=== PATIENT | male | born 1960 | race Caucasian/White ===

== ENCOUNTER 2016-04-27 17:09 | Emergency (ER) | payer OTHER ==
[~2016-04-27 17:09] MED LIST: IBUP200T2 PO
[2016-04-27] MEDS ORDERED: ONDANSETRON 4MG/2ML VIAL (J2405) As Ordered ONE (17:43)
[2016-04-27] MEDS ORDERED: MORPHINE 4 MG/ML 1ML SYRINGE As Ordered ONE ×2 (17:43→18:10)
--- NOTE | 2016-04-27 18:10 | REP ---
Clinical: Trauma. Technique: AP and lateral views. Findings: Comminuted fracture of the radial head is appreciated with small adjacent fracture fragments. The distal humerus and proximal ulna appear grossly intact. Anterior soft tissue swelling noted. Impression: Comminuted fracture of the radial head with small displaced fracture fragments. Signed by Radnolph Barroso MD 04/27/2016 06:01 P
[2016-04-27] MEDS ORDERED: ADACEL/BOOSTRIX VACCINE (DIPHTH/PERTUSS/ACELL/TETANUS)0.5ML SYR (90715) As Ordered ONE (19:04)
[2016-04-27] MEDS ORDERED: NEOSPORIN OINT 0.9 GM PKT (FLOOR STOCK) As Ordered ONE (19:08)
--- NOTE | 2016-04-27 19:17 | EDDOCDS ---
Nurse's Notes [facility] Name: Kashif Fong Age: 56 yrs Sex: Male : 1960 Arrival Date: 04/27/2016 Time: 17:09 Bed 4 Private MD: Diagnosis: Fall due to ice and snow;Fracture of head of radius-comminuted;Abrasion of scalp-left forehead Presentation: 04/27 17:14 Presenting complaint: Patient states: Sent from [facility] for ck1 dislocated right elbow. Fell on ice this afternoon at 1600. Adult Sepsis Screening: The patient does not have new or worsening altered mentation. Patient's respiratory rate is less than 22. Systolic blood pressure is greater than 100. Patient has a qSOFA score of 0- Negative Sepsis Screen. Suicide/Homicide risk assessment- the patient denies having any suicidal and/or homicidal ideations and does not present with any other emotional, behavioral or mental health complaints. Status: Patient is not a field services director or dependent. Transition of care: Patient was received from [facility]. Red Flag criteria, patient assessed and taken directly to a bed. 17:14 Acuity: DORA Level 3 ck1 17:14 Method Of Arrival: Walkin/Carried/Asstd ck1 Triage Assessment: 17:16 General: Appears in no apparent distress, comfortable, Behavior is appropriate for age, ck1 cooperative. Pain: Location: right arm Pain currently is 7 out of 10 on a pain scale. HIV screening NA for this visit Offered previously. Derm: Skin is intact, is healthy with good turgor, Skin is pink, warm & dry. Musculoskeletal: Range of motion limited in right elbow. Historical: - Allergies: PENICILLINS; - Home Meds: 1. none - PMHx: Hypercholesterolemia; - PSHx: left leg surgery fro gangrene; right eye surgery; - The history from nurses notes was reviewed: and elements of the historical information I have obtained differs from that reported to nursing. - Social history: Smoking status: Patient states former smoker of tobacco. No barriers to communication noted, The patient speaks fluent Mohawk, Speaks appropriately for age. - : The pt / caregiver states he / she is not on anticoagulants. Home medication list is obtained from the patient. - Hospitalizations: : No recent hospitalization is reported. - Exposure Risk Screening:: None identified. - Immunization history:: All immunizations up-to-date. - Family history: Not pertinent. - Social history:: the patient is a non-smoker, the patient does not drink alcohol. Screenin:18 Screening information is obtained from the patient. Fall risk: No risks identified. ck1 Assistance ADL's: requires no assistance with activities of daily living. Abuse/DV Screen: The patient / caregiver reports he/she is: not in a situation that causes fear, pain or injury. Nutritional screening: No deficits noted. Advance Directives: Currently, there is no health care proxy. home support is adequate. Assessment: 17:37 General: Appears in no apparent distress, well nourished, well groomed, Behavior is jjr appropriate for age. Neurological: No deficits noted. Respiratory: No deficits noted. Derm: No deficits noted. Musculoskeletal: Circulation, motion, and sensation intact Range of motion limited in right elbow. 19:15 General: Appears in no apparent distress, splint and sling in place to right arm. jjr Vital Signs: 17:12 BP 110 / 78; Pulse 76; Resp 16; Pulse Ox 100% on R/A; Weight 86.18 kg (R); Height 5 ft. lr2 6 in. (167.64 cm) (R); Pain 6/10; 17:52 Temp 100.5(TE); jjr 18:15 BP 128 / 70; jjr 19:15 BP 116 / 62; Pulse 76; Resp 18; Temp 100(TE); Pulse Ox 95% on R/A; Pain 5/10; jjr 17:12 Body Mass Index 30.67 (86.18 kg, 167.64 cm) lr2 Vitals: 17:09 RN notified that patient meets Red Flag criteria. lr2 17:12 Log In Time: April 27, 2016 at 17:09. lr2 ED Course: 17:11 Patient visited by Ileana Jonas. lr2 17:11 Patient moved to Waiting lr2 17:12 Patient moved to Pre RCE lr2 17:14 Annabelle Boss, RN is Primary Nurse. ck1 17:14 Patient moved to 4 ck1 17:15 Triage Initiated ck1 17:18 The patient / caregiver is instructed regarding the plan of care and ED course. ck1 17:22 Nadir Mao MD is Attending Physician. pc 17:37 Patient visited by Nadir Mao MD. pc 17:37 Patient visited by Annabelle Boss RN. jjr 17:43 Inserted saline lock: 20 gauge in left antecubital area. jjr 18:13 Elbow, (AP\E\Lat) Returned. EDMS 18:47 Orthopaedics, [facility] is Referral Physician. pc 18:48 Assist provider with fracture care of right arm Fracture is closed. Circulation, motor mcp and sensation is intact. Immoblized with Ortho Glass splint Performed by Nadir Mao MD Post immobilization, circulation, motor and sensation remain intact. Patient tolerated well. 19:15 Primary Nurse role handed off by Annabelle Boss RN cf2 19:15 Nan Bowman RN is Primary Nurse. cf2 19:15 Patient visited by Nan Bowman RN. cf2 19:15 [facility] Payment Agreement was scanned into [employer] and attached to record. zo 19:15 Discontinued lock intact, bleeding controlled, pressure dressing applied, No jjr redness/swelling at site. Administered Medications: 17:51 Drug: morphine 4 mg [morphine 4 mg/mL intravenous cartridge (1 mL)] Route: IVP; Site: jjr left antecubital; 17:51 Drug: Ondansetron 4 mg [ondansetron HCl 2 mg/mL intravenous solution (2 mL)] Route: jjr IVP; Site: left antecubital; 18:15 Drug: morphine 4 mg [morphine 4 mg/mL intravenous cartridge (1 mL)] Route: IVP; Site: jjr left antecubital; 19:08 Drug: Tetanus- Diptheria-Acellular Pertussis 0.5 ml [diphth,pertussis(acel),tetanus 2.5 cf2 Lf unit-8 mcg-5 Lf/0.5mL IM syringe (0.5 mL)] {Deep Tissue Massage Therapist: [employer]. Exp: 04/22/2018. Lot #: [id number]. } Route: IM; Site: left deltoid; Order Results: Radiology Order: Elbow, (AP\E\Lat) Test: Elbow, (AP\E\Lat) REASON FOR EXAMINATION: Trauma; Clinical: Trauma.; ; Technique: AP and lateral views.; ; Findings:; Comminuted fracture of the radial head is appreciated with small adjacent; fracture fragments. The distal humerus and proximal ulna appear grossly intact.; Anterior soft tissue swelling noted.; ; Impression:; Comminuted fracture of the radial head with small displaced fracture fragments.; ; ; Signed by; Randolph Barroso MD 04/27/2016 06:01 P; Outcome: 18:48 Discharge ordered by Provider. 19:16 Discharge Assessment: patient administered narcotics - yes. Pt provided with safe jjr discharge. The following High Risk Discharge criteria are identified: None. Discharged to home ambulatory. Condition: stable. Discharge instructions given to patient, Instructed on discharge instructions, follow up and referral plans. medication usage, Demonstrated understanding of instructions, medications, Prescriptions given X 1, Work note provided to patient. No special radiology studies were completed. Property sent home with patient. 19:16 Patient left the ED. jjr Signatures: Dispatcher [employer] EDNadir Berger MD MD pc Peters, Mary RN RN Lisset Brooks RN RN ck1 Antony Talamantes Jessica RN RN jjr Nan Bowman RN RN cf2 Ileana Jonas2 Corrections: (The following items were deleted from the chart) 17:46 17:16 PMHx: none; ck1 MTDD
--- NOTE | 2016-04-27 19:17 | EDDOCDS ---
Physician Documentation [facility] Name: Kashif Fong Age: 56 yrs Sex: Male : 1960 Arrival Date: 04/27/2016 Time: 17:09 Bed 4 Private MD: Disposition: 04/27 18:43 Critical Care: Critical care not applicable. pc Disposition: 04/27/16 18:48 Discharged to Home/Self Care. Impression: Fall due to ice and snow, Fracture of head of radius - comminuted, Abrasion of scalp - left forehead. - Condition is Stable. - Discharge Instructions: Abrasion, Radial Head Fracture, Arm Sling Use, [id number]. - Prescriptions for [place] 5- 325 mg Oral Tablet - take 1 tablet by ORAL route every 6 hours As needed MDD: 4 tabs; 20 tablet. - Work Release Form - 3 day, Medication Reconciliation, Local Pharmacy Hours form. - Follow up: Orthopaedics, [facility]; When: Tomorrow; Reason: Recheck today's complaints, To establish care. - Problem is new. - Symptoms have improved. HPI: 17:41 This 56 yrs old Male presents to ER via Walkin/Carried/Asstd with complaints pc of Fall Injury. 17:41 The history is obtained from the patient. He slipped on a sidewalk at work, falling pc forward and landing on his right elbow. He also struck the left side of his forehead on the sidewalk as well, sustaining an abrasion to his left eyebrow. He did not have a LOC. His only complaint is of right elbow pain. He was seen at a urgent care and sent here for fracture care. His films sent with him are of poor quality but show a radial head fracture and dislocation. He is right hand dominant. His last oral intake was at noon. At their worst, the symptoms were a 8 out of 10. In the emergency department, the symptoms are a 8 out of 10. The patient has not experienced similar symptoms in the past. The patient has not recently seen a physician. Historical: - Allergies: PENICILLINS; - Home Meds: 1. none - PMHx: Hypercholesterolemia; - PSHx: left leg surgery fro gangrene; right eye surgery; - The history from nurses notes was reviewed: and elements of the historical information I have obtained differs from that reported to nursing. - Social history: Smoking status: Patient states former smoker of tobacco. No barriers to communication noted, The patient speaks fluent Italian, Speaks appropriately for age. - : The pt / caregiver states he / she is not on anticoagulants. Home medication list is obtained from the patient. - Hospitalizations: : No recent hospitalization is reported. - Exposure Risk Screening:: None identified. - Immunization history:: All immunizations up-to-date. - Family history: Not pertinent. - Social history:: the patient is a non-smoker, the patient does not drink alcohol. ROS: 17:46 All systems are negative except as listed. pc Exam: 17:46 General Appearance: alert, the patient is in mild distress. pc 17:46 EENT: normal eye inspection, ears, nose and throat normal, pharynx normal, mucous membranes moist small abrasion to left eyebrow, no laceration . 17:46 Neck: The exam reveals no acute abnormalities. ROM is normal and painless. No nuchal rigidity is noted.. 17:46 Respiratory: no respiratory distress, normal breath sounds, chest non-tender. 17:46 CVS: regular pulse rate, regular rhythm, normal S1 and S2, no murmurs, strong peripheral pulses. 17:46 Abdomen: soft, non-tender, no organomegaly, normal bowel sounds. 17:46 Back: normal inspection. 17:46 Skin: skin color is normal, warm, dry. 17:46 Extremities: grossly normal except: noted in the right elbow: decreased ROM, pain, swelling, NVT normal . 17:46 Neuro: no motor deficits, no sensory deficits. Vital Signs: 17:12 BP 110 / 78; Pulse 76; Resp 16; Pulse Ox 100% on R/A; Weight 86.18 kg / 189.99 lbs (R); lr2 Height 5 ft. 6 in. (167.64 cm) (R); Pain 6/10; 17:52 Temp 100.5(TE); jjr 18:15 BP 128 / 70; jjr 19:15 BP 116 / 62; Pulse 76; Resp 18; Temp 100(TE); Pulse Ox 95% on R/A; Pain 5/10; jjr 17:12 Body Mass Index 30.67 (86.18 kg, 167.64 cm) lr2 Procedures: 18:44 Fracture care/splinting: (Restorative Care) Splint applied to right elbow using pc Orthoglass splint, sugar tong. applied by myself. Examined by me, post splint application: neurovascular intact, 2+ distal pulses palpable, brisk capillary refill noted, Patient tolerated well. MDM: 17:37 IV Saline Lock ordered. pc 17:38 morphine 4 mg IVP every 15 minutes; Document pain score/vitals after each dose (Hold if pc SBP < 90mmHg) x2 ordered. 17:38 Ondansetron 4 mg IVP once ordered. pc 17:39 NOTHING BY MOUTH+DIET ordered. EDMS 17:39 Elbow, (AP\E\Lat) Ordered. EDMS 17:46 Differential Diagnosis: fall; forehead abrasion; right elbow injury r/o fracture+/- pc dislocation. Plan: analgesia, imaging. 18:43 Data reviewed: old medical records, vital signs, nurses notes, all radiology studies pc and available results. Test interpretation: X-RAY - interpreted by Radiologist and personally reviewed, Elbow Right Fracture Radial head Comminuted with a few free fragments. The patient has been re-examined and re-evaluated. The patient's symptoms have markedly improved after treatment. Physician consultation: Dr. Dianne Lin was contacted at 18:44, regarding patient's condition, and advises the medications/treatment as provided. and agrees with the treatment provided and advises the discharge plans as outlined. Disposition: The historical points, examination findings, and any diagnostic results supporting the provided diagnosis, were discussed with the patient or legal guardian. The need for outpatient follow up with the provider listed on their discharge instructions was discussed. They were encouraged to return to [facility], or the nearest ED, if symptoms worsen/persist, or for any other questions/concerns. 18:45 Sling ordered. pc 18:46 Wound Care ordered. pc 18:46 Tetanus- Diptheria-Acellular Pertussis 0.5 ml IM once; Routine booster 10-64yrs, >64 pc with child contact [place] [employer] ordered. 19:15 Financial registration complete. zo 19:15 [facility] [place] was [place] into [employer] and attached to record. zo Administered Medications: 17:51 Drug: morphine 4 mg [morphine 4 mg/mL intravenous cartridge (1 mL)] Route: IVP; Site: jjr left antecubital; 17:51 Drug: Ondansetron 4 mg [ondansetron HCl 2 mg/mL intravenous solution (2 mL)] Route: jjr IVP; Site: left antecubital; 18:15 Drug: morphine 4 mg [morphine 4 mg/mL intravenous cartridge (1 mL)] Route: IVP; Site: jjr left antecubital; 19:08 Drug: Tetanus- Diptheria-Acellular Pertussis 0.5 ml [diphth,pertussis(acel),tetanus 2.5 cf2 Lf unit-8 mcg-5 Lf/0.5mL IM syringe (0.5 mL)] {It Project Manager: [employer]. Exp: 04/22/2018. Lot #: [id number]. } Route: IM; Site: left deltoid; Signatures: Dispatcher [employer] Nadir Wilkinson MD MD pc Kim-Ashcraft, Connie, RN RN ck1 Antony Talamantes Jessica, RN RN jjNan Painting RN cf2 The chart was reviewed and I authenticate all verbal orders and agree with the evaluation and treatment provided.Corrections: (The following items were deleted from the chart) 17:46 17:16 PMHx: none; francois mena Attachments: 19:15 [facility] [place] zo MTDD
--- NOTE | 2016-04-29 20:17 | EDDOCDS ---
Physician Documentation [facility] Name: Kashif Fong Age: 56 yrs Sex: Male : 1960 Arrival Date: 04/27/2016 Time: 17:09 Bed 4 Private MD: Disposition: 04/27 18:43 Critical Care: Critical care not applicable. pc Disposition: 04/27/16 18:48 Discharged to Home/Self Care. Impression: Fall due to ice and snow, Fracture of head of radius - comminuted, Abrasion of scalp - left forehead. - Condition is Stable. - Discharge Instructions: Abrasion, Radial Head Fracture, Arm Sling Use, [id number]. - Prescriptions for [place] 5- 325 mg Oral Tablet - take 1 tablet by ORAL route every 6 hours As needed MDD: 4 tabs; 20 tablet. - Work Release Form - 3 day, Medication Reconciliation, Local Pharmacy Hours form. - Follow up: Orthopaedics, [facility]; When: Tomorrow; Reason: Recheck today's complaints, To establish care. - Problem is new. - Symptoms have improved. HPI: 17:41 This 56 yrs old Male presents to ER via Walkin/Carried/Asstd with complaints pc of Fall Injury. 17:41 The history is obtained from the patient. He slipped on a sidewalk at work, falling pc forward and landing on his right elbow. He also struck the left side of his forehead on the sidewalk as well, sustaining an abrasion to his left eyebrow. He did not have a LOC. His only complaint is of right elbow pain. He was seen at a urgent care and sent here for fracture care. His films sent with him are of poor quality but show a radial head fracture and dislocation. He is right hand dominant. His last oral intake was at noon. At their worst, the symptoms were a 8 out of 10. In the emergency department, the symptoms are a 8 out of 10. The patient has not experienced similar symptoms in the past. The patient has not recently seen a physician. Historical: - Allergies: PENICILLINS; - Home Meds: 1. none - PMHx: Hypercholesterolemia; - PSHx: left leg surgery fro gangrene; right eye surgery; - The history from nurses notes was reviewed: and elements of the historical information I have obtained differs from that reported to nursing. - Social history: Smoking status: Patient states former smoker of tobacco. No barriers to communication noted, The patient speaks fluent Montenegrin, Speaks appropriately for age. - : The pt / caregiver states he / she is not on anticoagulants. Home medication list is obtained from the patient. - Hospitalizations: : No recent hospitalization is reported. - Exposure Risk Screening:: None identified. - Immunization history:: All immunizations up-to-date. - Family history: Not pertinent. - Social history:: the patient is a non-smoker, the patient does not drink alcohol. ROS: 17:46 All systems are negative except as listed. pc Exam: 17:46 General Appearance: alert, the patient is in mild distress. pc 17:46 EENT: normal eye inspection, ears, nose and throat normal, pharynx normal, mucous membranes moist small abrasion to left eyebrow, no laceration . 17:46 Neck: The exam reveals no acute abnormalities. ROM is normal and painless. No nuchal rigidity is noted.. 17:46 Respiratory: no respiratory distress, normal breath sounds, chest non-tender. 17:46 CVS: regular pulse rate, regular rhythm, normal S1 and S2, no murmurs, strong peripheral pulses. 17:46 Abdomen: soft, non-tender, no organomegaly, normal bowel sounds. 17:46 Back: normal inspection. 17:46 Skin: skin color is normal, warm, dry. 17:46 Extremities: grossly normal except: noted in the right elbow: decreased ROM, pain, swelling, NVT normal . 17:46 Neuro: no motor deficits, no sensory deficits. Vital Signs: 17:12 BP 110 / 78; Pulse 76; Resp 16; Pulse Ox 100% on R/A; Weight 86.18 kg / 189.99 lbs (R); lr2 Height 5 ft. 6 in. (167.64 cm) (R); Pain 6/10; 17:52 Temp 100.5(TE); jjr 18:15 BP 128 / 70; jjr 19:15 BP 116 / 62; Pulse 76; Resp 18; Temp 100(TE); Pulse Ox 95% on R/A; Pain 5/10; jjr 17:12 Body Mass Index 30.67 (86.18 kg, 167.64 cm) lr2 Procedures: 18:44 Fracture care/splinting: (Restorative Care) Splint applied to right elbow using pc Orthoglass splint, sugar tong. applied by myself. Examined by me, post splint application: neurovascular intact, 2+ distal pulses palpable, brisk capillary refill noted, Patient tolerated well. MDM: 17:37 IV Saline Lock ordered. pc 17:38 morphine 4 mg IVP every 15 minutes; Document pain score/vitals after each dose (Hold if pc SBP < 90mmHg) x2 ordered. 17:38 Ondansetron 4 mg IVP once ordered. pc 17:39 NOTHING BY MOUTH+DIET ordered. EDMS 17:39 Elbow, (AP\E\Lat) Ordered. EDMS 17:46 Differential Diagnosis: fall; forehead abrasion; right elbow injury r/o fracture+/- pc dislocation. Plan: analgesia, imaging. 18:43 Data reviewed: old medical records, vital signs, nurses notes, all radiology studies pc and available results. Test interpretation: X-RAY - interpreted by Radiologist and personally reviewed, Elbow Right Fracture Radial head Comminuted with a few free fragments. The patient has been re-examined and re-evaluated. The patient's symptoms have markedly improved after treatment. Physician consultation: Dr. Dianne Lin was contacted at 18:44, regarding patient's condition, and advises the medications/treatment as provided. and agrees with the treatment provided and advises the discharge plans as outlined. Disposition: The historical points, examination findings, and any diagnostic results supporting the provided diagnosis, were discussed with the patient or legal guardian. The need for outpatient follow up with the provider listed on their discharge instructions was discussed. They were encouraged to return to [facility], or the nearest ED, if symptoms worsen/persist, or for any other questions/concerns. 18:45 Sling ordered. pc 18:46 Wound Care ordered. pc 18:46 Tetanus- Diptheria-Acellular Pertussis 0.5 ml IM once; Routine booster 10-64yrs, >64 pc with child contact [employer] ordered. 19:15 Financial registration complete. zo 19:15 [facility] [place] was scanned into [employer] and attached to record. zo Administered Medications: 17:51 Drug: morphine 4 mg [morphine 4 mg/mL intravenous cartridge (1 mL)] Route: IVP; Site: jjr left antecubital; 17:51 Drug: Ondansetron 4 mg [ondansetron HCl 2 mg/mL intravenous solution (2 mL)] Route: jjr IVP; Site: left antecubital; 18:15 Drug: morphine 4 mg [morphine 4 mg/mL intravenous cartridge (1 mL)] Route: IVP; Site: jjr left antecubital; 19:08 Drug: Tetanus- Diptheria-Acellular Pertussis 0.5 ml [diphth,pertussis(acel),tetanus 2.5 cf2 Lf unit-8 mcg-5 Lf/0.5mL IM syringe (0.5 mL)] {Calender Worker Helper: [employer]. Exp: 04/22/2018. Lot #: [id number]. } Route: IM; Site: left deltoid; Signatures: Dispatcher [employer] Nadir Wilkinson MD MD pc Kim-Ashcraft, Connie, RN RN ck1 Antony Talamantes Jessica, RN RN jjNan Painting RN cf2 The chart was reviewed and I authenticate all verbal orders and agree with the evaluation and treatment provided.Corrections: (The following items were deleted from the chart) 17:46 17:16 PMHx: none; francois mena Attachments: 19:15 [facility] [place] zo Chart Complete MTDD
--- NOTE | 2016-04-29 20:17 | EDDOCDS ---
Physician Documentation [facility] Name: Kashif Fong Age: 56 yrs Sex: Male : 1960 Arrival Date: 04/27/2016 Time: 17:09 Bed 4 Private MD: Disposition: 04/27 18:43 Critical Care: Critical care not applicable. pc Disposition: 04/27/16 18:48 Discharged to Home/Self Care. Impression: Fall due to ice and snow, Fracture of head of radius - comminuted, Abrasion of scalp - left forehead. - Condition is Stable. - Discharge Instructions: Abrasion, Radial Head Fracture, Arm Sling Use, [id number]. - Prescriptions for Logan 5- 325 mg Oral Tablet - take 1 tablet by ORAL route every 6 hours As needed MDD: 4 tabs; 20 tablet. - Work Release Form - 3 day, Medication Reconciliation, Local Pharmacy Hours form. - Follow up: Orthopaedics, [facility]; When: Tomorrow; Reason: Recheck today's complaints, To establish care. - Problem is new. - Symptoms have improved. HPI: 17:41 This 56 yrs old Male presents to ER via Walkin/Carried/Asstd with complaints pc of Fall Injury. 17:41 The history is obtained from the patient. He slipped on a sidewalk at work, falling pc forward and landing on his right elbow. He also struck the left side of his forehead on the sidewalk as well, sustaining an abrasion to his left eyebrow. He did not have a LOC. His only complaint is of right elbow pain. He was seen at a urgent care and sent here for fracture care. His films sent with him are of poor quality but show a radial head fracture and dislocation. He is right hand dominant. His last oral intake was at noon. At their worst, the symptoms were a 8 out of 10. In the emergency department, the symptoms are a 8 out of 10. The patient has not experienced similar symptoms in the past. The patient has not recently seen a physician. Historical: - Allergies: PENICILLINS; - Home Meds: 1. none - PMHx: Hypercholesterolemia; - PSHx: left leg surgery fro gangrene; right eye surgery; - The history from nurses notes was reviewed: and elements of the historical information I have obtained differs from that reported to nursing. - Social history: Smoking status: Patient states former smoker of tobacco. No barriers to communication noted, The patient speaks fluent Algerian, Speaks appropriately for age. - : The pt / caregiver states he / she is not on anticoagulants. Home medication list is obtained from the patient. - Hospitalizations: : No recent hospitalization is reported. - Exposure Risk Screening:: None identified. - Immunization history:: All immunizations up-to-date. - Family history: Not pertinent. - Social history:: the patient is a non-smoker, the patient does not drink alcohol. ROS: 17:46 All systems are negative except as listed. pc Exam: 17:46 General Appearance: alert, the patient is in mild distress. pc 17:46 EENT: normal eye inspection, ears, nose and throat normal, pharynx normal, mucous membranes moist small abrasion to left eyebrow, no laceration . 17:46 Neck: The exam reveals no acute abnormalities. ROM is normal and painless. No nuchal rigidity is noted.. 17:46 Respiratory: no respiratory distress, normal breath sounds, chest non-tender. 17:46 CVS: regular pulse rate, regular rhythm, normal S1 and S2, no murmurs, strong peripheral pulses. 17:46 Abdomen: soft, non-tender, no organomegaly, normal bowel sounds. 17:46 Back: normal inspection. 17:46 Skin: skin color is normal, warm, dry. 17:46 Extremities: grossly normal except: noted in the right elbow: decreased ROM, pain, swelling, NVT normal . 17:46 Neuro: no motor deficits, no sensory deficits. Vital Signs: 17:12 BP 110 / 78; Pulse 76; Resp 16; Pulse Ox 100% on R/A; Weight 86.18 kg / 189.99 lbs (R); lr2 Height 5 ft. 6 in. (167.64 cm) (R); Pain 6/10; 17:52 Temp 100.5(TE); jjr 18:15 BP 128 / 70; jjr 19:15 BP 116 / 62; Pulse 76; Resp 18; Temp 100(TE); Pulse Ox 95% on R/A; Pain 5/10; jjr 17:12 Body Mass Index 30.67 (86.18 kg, 167.64 cm) lr2 Procedures: 18:44 Fracture care/splinting: (Restorative Care) Splint applied to right elbow using pc Orthoglass splint, sugar tong. applied by myself. Examined by me, post splint application: neurovascular intact, 2+ distal pulses palpable, brisk capillary refill noted, Patient tolerated well. MDM: 17:37 IV Saline Lock ordered. pc 17:38 morphine 4 mg IVP every 15 minutes; Document pain score/vitals after each dose (Hold if pc SBP < 90mmHg) x2 ordered. 17:38 Ondansetron 4 mg IVP once ordered. pc 17:39 NOTHING BY MOUTH+DIET ordered. EDMS 17:39 Elbow, (AP\E\Lat) Ordered. EDMS 17:46 Differential Diagnosis: fall; forehead abrasion; right elbow injury r/o fracture+/- pc dislocation. Plan: analgesia, imaging. 18:43 Data reviewed: old medical records, vital signs, nurses notes, all radiology studies pc and available results. Test interpretation: X-RAY - interpreted by Radiologist and personally reviewed, Elbow Right Fracture Radial head Comminuted with a few free fragments. The patient has been re-examined and re-evaluated. The patient's symptoms have markedly improved after treatment. Physician consultation: Dr. Dianne Lin was contacted at 18:44, regarding patient's condition, and advises the medications/treatment as provided. and agrees with the treatment provided and advises the discharge plans as outlined. Disposition: The historical points, examination findings, and any diagnostic results supporting the provided diagnosis, were discussed with the patient or legal guardian. The need for outpatient follow up with the provider listed on their discharge instructions was discussed. They were encouraged to return to [facility], or the nearest ED, if symptoms worsen/persist, or for any other questions/concerns. 18:45 Sling ordered. pc 18:46 Wound Care ordered. pc 18:46 Tetanus- Diptheria-Acellular Pertussis 0.5 ml IM once; Routine booster 10-64yrs, >64 pc with child contact [employer] ordered. 19:15 Financial registration complete. zo 19:15 [facility] Payment Agreement was scanned into [employer] and attached to record. 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 Exp: 04/22/2018. Lot #: [id number]. } Route: IM; Site: left deltoid; Signatures: Dispatcher [employer] Nadir Wilkinson MD MD pc Kim-Ashcraft, Connie, RN RN ck1 Antony Talamantes Jessica, RN RN jjNan Painting RN cf2 The chart was reviewed and I authenticate all verbal orders and agree with the evaluation and treatment provided.Corrections: (The following items were deleted from the chart) 17:46 17:16 PMHx: none; francois mena Attachments: 19:15 [facility] Payment Agreement zo Chart Complete MTDD
--- NOTE | 2016-04-29 20:17 | EDDOCDS ---
Nurse's Notes [facility] Name: Kashif Fong Age: 56 yrs Sex: Male : 1960 Arrival Date: 04/27/2016 Time: 17:09 Bed 4 Private MD: Diagnosis: Fall due to ice and snow;Fracture of head of radius-comminuted;Abrasion of scalp-left forehead Presentation: 04/27 17:14 Presenting complaint: Patient states: Sent from [facility] for ck1 dislocated right elbow. Fell on ice this afternoon at 1600. Adult Sepsis Screening: The patient does not have new or worsening altered mentation. Patient's respiratory rate is less than 22. Systolic blood pressure is greater than 100. Patient has a qSOFA score of 0- Negative Sepsis Screen. Suicide/Homicide risk assessment- the patient denies having any suicidal and/or homicidal ideations and does not present with any other emotional, behavioral or mental health complaints. Status: Patient is not a community services coordinator or dependent. Transition of care: Patient was received from [facility]. Red Flag criteria, patient assessed and taken directly to a bed. 17:14 Acuity: DORA Level 3 ck1 17:14 Method Of Arrival: Walkin/Carried/Asstd ck1 Triage Assessment: 17:16 General: Appears in no apparent distress, comfortable, Behavior is appropriate for age, ck1 cooperative. Pain: Location: right arm Pain currently is 7 out of 10 on a pain scale. HIV screening NA for this visit Offered previously. Derm: Skin is intact, is healthy with good turgor, Skin is pink, warm & dry. Musculoskeletal: Range of motion limited in right elbow. Historical: - Allergies: PENICILLINS; - Home Meds: 1. none - PMHx: Hypercholesterolemia; - PSHx: left leg surgery fro gangrene; right eye surgery; - The history from nurses notes was reviewed: and elements of the historical information I have obtained differs from that reported to nursing. - Social history: Smoking status: Patient states former smoker of tobacco. No barriers to communication noted, The patient speaks fluent Czech, Speaks appropriately for age. - : The pt / caregiver states he / she is not on anticoagulants. Home medication list is obtained from the patient. - Hospitalizations: : No recent hospitalization is reported. - Exposure Risk Screening:: None identified. - Immunization history:: All immunizations up-to-date. - Family history: Not pertinent. - Social history:: the patient is a non-smoker, the patient does not drink alcohol. Screenin:18 Screening information is obtained from the patient. Fall risk: No risks identified. ck1 Assistance ADL's: requires no assistance with activities of daily living. Abuse/DV Screen: The patient / caregiver reports he/she is: not in a situation that causes fear, pain or injury. Nutritional screening: No deficits noted. Advance Directives: Currently, there is no health care proxy. home support is adequate. Assessment: 17:37 General: Appears in no apparent distress, well nourished, well groomed, Behavior is jjr appropriate for age. Neurological: No deficits noted. Respiratory: No deficits noted. Derm: No deficits noted. Musculoskeletal: Circulation, motion, and sensation intact Range of motion limited in right elbow. 19:15 General: Appears in no apparent distress, splint and sling in place to right arm. jjr Vital Signs: 17:12 BP 110 / 78; Pulse 76; Resp 16; Pulse Ox 100% on R/A; Weight 86.18 kg (R); Height 5 ft. lr2 6 in. (167.64 cm) (R); Pain 6/10; 17:52 Temp 100.5(TE); jjr 18:15 BP 128 / 70; jjr 19:15 BP 116 / 62; Pulse 76; Resp 18; Temp 100(TE); Pulse Ox 95% on R/A; Pain 5/10; jjr 17:12 Body Mass Index 30.67 (86.18 kg, 167.64 cm) lr2 Vitals: 17:09 RN notified that patient meets Red Flag criteria. lr2 17:12 Log In Time: April 27, 2016 at 17:09. lr2 ED Course: 17:11 Patient visited by Ileana Jonas. lr2 17:11 Patient moved to Waiting lr2 17:12 Patient moved to Pre RCE lr2 17:14 Annabelle Boss, RN is Primary Nurse. ck1 17:14 Patient moved to 4 ck1 17:15 Triage Initiated ck1 17:18 The patient / caregiver is instructed regarding the plan of care and ED course. ck1 17:22 Nadir Mao MD is Attending Physician. pc 17:37 Patient visited by Nadir Mao MD. pc 17:37 Patient visited by Annabelle Boss RN. jjr 17:43 Inserted saline lock: 20 gauge in left antecubital area. jjr 18:13 Elbow, (AP\E\Lat) Returned. EDMS 18:47 Orthopaedics, [facility] is Referral Physician. pc 18:48 Assist provider with fracture care of right arm Fracture is closed. Circulation, motor mcp and sensation is intact. Immoblized with Ortho Glass splint Performed by Nadir Mao MD Post immobilization, circulation, motor and sensation remain intact. Patient tolerated well. 19:15 Primary Nurse role handed off by Annabelle Boss RN cf2 19:15 Nan Bowman RN is Primary Nurse. cf2 19:15 Patient visited by Nan Bowman RN. cf2 19:15 [facility] Payment Agreement was scanned into [employer] and attached to record. zo 19:15 Discontinued lock intact, bleeding controlled, pressure dressing applied, No jjr redness/swelling at site. 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 Exp: 04/22/2018. Lot #: [id number]. } Route: IM; Site: left deltoid; Order Results: Radiology Order: Elbow, (AP\E\Lat) Test: Elbow, (AP\E\Lat) REASON FOR EXAMINATION: Trauma; Clinical: Trauma.; ; Technique: AP and lateral views.; ; Findings:; Comminuted fracture of the radial head is appreciated with small adjacent; fracture fragments. The distal humerus and proximal ulna appear grossly intact.; Anterior soft tissue swelling noted.; ; Impression:; Comminuted fracture of the radial head with small displaced fracture fragments.; ; ; Signed by; Randolph Barroso MD 04/27/2016 06:01 P; Outcome: 18:48 Discharge ordered by Provider. 19:16 Discharge Assessment: patient administered narcotics - yes. Pt provided with safe jjr discharge. The following High Risk Discharge criteria are identified: None. Discharged to home ambulatory. Condition: stable. Discharge instructions given to patient, Instructed on discharge instructions, follow up and referral plans. medication usage, Demonstrated understanding of instructions, medications, Prescriptions given X 1, Work note provided to patient. No special radiology studies were completed. Property sent home with patient. 19:16 Patient left the ED. jjr Signatures: Dispatcher [employer] EDNadir Berger MD MD pc Peters, Mary RN RN Lisset Brooks RN RN ck1 Antony Talamantes Jessica RN RN jjr Nan Bowman RN RN cf2 Ileana Jonas2 Corrections: (The following items were deleted from the chart) 17:46 17:16 PMHx: none; ck1 Chart Complete MTDD
== END 2016-04-27 19:16 | disposition home or self-care (01) ==
LOC: M ED 17:09
DX: S00.01XA Abrasion of scalp, initial encounter (principal); S52.121A Displaced fracture of head of right radius, initial encounter for closed fracture; W00.0XXA Fall on same level due to ice and snow, initial encounter; Y92.480 Sidewalk as the place of occurrence of the external cause; Y93.01 Activity, walking, marching and hiking; Y99.0 Civilian activity done for income or pay; E78.00 Pure hypercholesterolemia, unspecified; Z88.0 Allergy status to penicillin; Z87.891 Personal history of nicotine dependence
CPT/HCPCS: 29105; 73070; 90715; 96372; 96374; 96375; 99285; J2405

== ENCOUNTER 2017-06-07 09:17 | Emergency (ER) | payer OTHER ==
[2017-06-07] MEDS: ALBUTEROL SULFATE 2.5 MG/0.5 ML INH NEB SOLN INH (09:50)
[2017-06-07] MEDS: IPRATROPIUM 0.5MG/ALBUTEROL 2.5MG INH SOL UD 3ML (DUONEB)(J7620) NEB (09:50)
== END 2017-06-07 11:11 | disposition home or self-care (01) ==
LOC: M ED 09:17
DX: J20.9 Acute bronchitis, unspecified (principal); Z88.8 Allergy status to other drugs, medicaments and biological substances; Z88.0 Allergy status to penicillin; Z87.891 Personal history of nicotine dependence
CPT/HCPCS: 71046

== ENCOUNTER → 2017-11-28 | Outpatient (REF) | payer OTHER ==
[2017-11-28 13:24] LABS: ALBUMIN 3.8 GM/DL (3.2-5.2); ALBUMIN/GLOBULIN RATIO 1.09 (1.00-1.93); ALKALINE PHOSPHATASE 67 U/L (45-117); ALT/SGPT 28 U/L (12-78); ANION GAP 5 MEQ/L (8-16); AST/SGOT 15 U/L (7-37); BILIRUBIN,TOTAL 0.4 MG/DL (0.2-1.0); BLOOD UREA NITROGEN 17 MG/DL (7-18); CALCIUM LEVEL 8.8 MG/DL (8.5-10.1); CARBON DIOXIDE LEVEL 30 MEQ/L (21-32); CHLORIDE LEVEL 104 MEQ/L (98-107); CHOLESTEROL LEVEL 216 MG/DL (<200); CREATININE FOR GFR 1.06 MG/DL (0.70-1.30); FREE T4 0.88 NG/DL (0.76-1.46); GLOMERULAR FILTRATION RATE > 60.0 (>56); GLUCOSE, FASTING 94 MG/DL (70-100); HDL CHOLESTEROL 54 MG/DL (>40); LDL CHOLESTEROL 126 MG/DL (<100); NON-HDL-C 162 MG/DL; POTASSIUM SERUM 4.4 MEQ/L (3.5-5.1); PSA SCREENING 0.53 NG/ML (< 4.0); SODIUM LEVEL 139 MEQ/L (136-145); TOTAL 25(OH) VITAMIN D 35.9 NG/ML (30.0-100.0); TOTAL PROTEIN 7.3 GM/DL (6.4-8.2); TRIGLYCERIDES LEVEL 180 MG/DL (<150)
== END ==
LOC: M SFHCPLAZ 09:02
DX: E78.2 Mixed hyperlipidemia (principal); Z12.5 Encounter for screening for malignant neoplasm of prostate; Z13.21 Encounter for screening for nutritional disorder

== ENCOUNTER 2018-01-15 07:47 | Day surgery (SDC) | payer OTHER ==
[2018-01-15] MEDS ORDERED: NS 1,000 ML IV (09:15)
[2018-01-15] MEDS ORDERED: PROPOFOL 500 MG/50 ML VIAL As Ordered (09:59)
[2018-01-15] MEDS ORDERED: LIDOCAINE 2% INJ 100 MG/5 ML SDV (FOR ANES.) As Ordered (09:59)
== END 2018-01-15 10:47 | disposition home or self-care (01) ==
LOC: M OPP 07:47
DX: Z12.11 Encounter for screening for malignant neoplasm of colon (principal); D12.6 Benign neoplasm of colon, unspecified; K57.30 Diverticulosis of large intestine without perforation or abscess without bleeding; K21.9 Gastro-esophageal reflux disease without esophagitis; R06.83 Snoring; Z80.3 Family history of malignant neoplasm of breast; Z80.41 Family history of malignant neoplasm of ovary; Z88.0 Allergy status to penicillin; Z88.8 Allergy status to other drugs, medicaments and biological substances
CPT/HCPCS: 45385

== ENCOUNTER → 2019-01-10 | Outpatient (REF) | payer OTHER ==
[~2019-01-10] MED LIST changes: +GARL350T PO; +IPRA0.00 IN; +MUCI600T37 PO; +MULT1TAB10 PO; +PRED20TA PO; +ZITHTAB PO
[2019-01-10 12:00] LABS: BASO % 0.3 % (0.0-1.0); EOS # 0.2 10^3/uL (0.0-0.5); EOS % 1.9 % (0.0-3.0); HEMATOCRIT 50.5 % (42.0-52.0); HEMOGLOBIN 16.1 g/dl (13.5-17.5); LYMPH # 3.1 10^3/uL (1.5-5.0); LYMPH % 29.7 % (24.0-44.0); MEAN CORPUSCULAR HEMOGLOBIN 31.1 pg (27.0-33.0); MEAN CORPUSCULAR HGB CONC 31.9 g/dl (32.0-36.5); MEAN CORPUSCULAR VOLUME 97.5 fl (80.0-96.0); MONO # 1.2 10^3/uL (0.0-0.8); MONO % 11.3 % (0.0-5.0); NEUTROPHILS # 5.8 10^3/uL (1.5-8.5); NEUTROPHILS % 55.8 % (36.0-66.0); PLATELET COUNT, AUTOMATED 296 10^3/uL (150-450); RED BLOOD COUNT 5.18 10^6/uL (4.30-6.10); WHITE BLOOD COUNT 10.3 10^3/uL (4.0-10.0)
[2019-01-10 12:23] LABS: ALBUMIN 3.6 GM/DL (3.2-5.2); ALT/SGPT 28 U/L (12-78); BILIRUBIN,TOTAL 0.5 MG/DL (0.2-1.0); BLOOD UREA NITROGEN 19 MG/DL (7-18); CALCIUM LEVEL 8.9 MG/DL (8.5-10.1); CARBON DIOXIDE LEVEL 30 MEQ/L (21-32); CHLORIDE LEVEL 101 MEQ/L (98-107); CHOLESTEROL LEVEL 192 MG/DL (<200); CHOLESTEROL RISK RATIO 4.363 (<5); CREATININE FOR GFR 1.09 MG/DL (0.70-1.30); FREE T4 0.88 NG/DL (0.76-1.46); GLOMERULAR FILTRATION RATE > 60.0 (>56); GLUCOSE, FASTING 87 MG/DL (70-100); HDL CHOLESTEROL 44 MG/DL (>40); LDL CHOLESTEROL 80 MG/DL (<100); NON-HDL-C 148 MG/DL; POTASSIUM SERUM 4.7 MEQ/L (3.5-5.1); SODIUM LEVEL 139 MEQ/L (136-145); TOTAL PROTEIN 7.6 GM/DL (6.4-8.2); TRIGLYCERIDES LEVEL 341 MG/DL (<150)
== END ==
LOC: M SFHCPLAZ 09:14
PROVIDERS: ATTEND Nurse Practitioner Family
DX: J06.9 Acute upper respiratory infection, unspecified (principal); E78.2 Mixed hyperlipidemia

== ENCOUNTER 2019-08-29 08:15 | Emergency (ER) | payer OTHER ==
[~2019-08-29] VITALS: Ht 167.6 cm; Wt 93.6 kg
[2019-08-29 08:15] VITALS: BP 135/84
[2019-08-29] MEDS ORDERED: DOXY100C37 PO (08:57)
[2019-08-29] MEDS ORDERED: BACIOIN7 TOP (08:58)
== END 2019-08-29 10:02 | disposition home or self-care (01) ==
LOC: M ED 08:15
DX: L30.9 Dermatitis, unspecified (principal)

== ENCOUNTER 2019-08-31 10:49 | Emergency (ER) | payer OTHER ==
[~2019-08-31] VITALS: Ht 167.6 cm; Wt 94.4 kg
[~2019-08-31 10:49] MED LIST changes: +BACIOIN7 TOP; +DOXY100C37 PO
[2019-08-31] MEDS ORDERED: RANI15TA PO (12:24)
[2019-08-31] MEDS ORDERED: PRED20TA PO (12:24)
[2019-08-31 12:45] VITALS: BP 120/79
== END 2019-08-31 12:56 | disposition home or self-care (01) ==
LOC: M ED 10:49
DX: L25.9 Unspecified contact dermatitis, unspecified cause (principal); G47.30 Sleep apnea, unspecified; Z79.899 Other long term (current) drug therapy; Z88.8 Allergy status to other drugs, medicaments and biological substances; Z88.0 Allergy status to penicillin

== ENCOUNTER → 2022-01-24 | Outpatient (CLI) | payer OTHER ==
[~2022-01-24] MED LIST changes: +DOXY-443 PO; -DOXY100C37 PO; +RANI15TA PO
== END ==
LOC: M LABSMTC 10:06
PROVIDERS: ATTEND Anesthesiology
DX: Z01.812 Encounter for preprocedural laboratory examination (principal); Z11.52 Encounter for screening for COVID-19

== ENCOUNTER 2022-01-26 08:50 | Day surgery (SDC) | payer OTHER ==
[~2022-01-26] VITALS: Ht 162.6 cm; Wt 92.0 kg
[~2022-01-26 08:50] MED LIST changes: +NS 1,000 ML IV ONE
[2022-01-26] MEDS ORDERED: MULTTAB61 PO (10:06)
[2022-01-26] MEDS ORDERED: GARL3CAP4 PO (10:06)
[2022-01-26 12:08] VITALS: BP 134/83
== END 2022-01-26 12:12 | disposition home or self-care (01) ==
LOC: M OPP 08:50
PROVIDERS: ATTEND Internal Medicine Gastroenterology
DX: Z12.11 Encounter for screening for malignant neoplasm of colon (principal); Z86.010 Personal history of colon polyps; K57.30 Diverticulosis of large intestine without perforation or abscess without bleeding; K64.8 Other hemorrhoids; Z88.0 Allergy status to penicillin; Z88.8 Allergy status to other drugs, medicaments and biological substances; Z87.891 Personal history of nicotine dependence; Z80.3 Family history of malignant neoplasm of breast; Z80.8 Family history of malignant neoplasm of other organs or systems; Z80.41 Family history of malignant neoplasm of ovary

== ENCOUNTER → 2022-03-28 | Outpatient (CLI) | payer OTHER ==
[~2022-03-28] MED LIST changes: +GARL3CAP4 PO; +MULTTAB61 PO; -NS 1,000 ML IV ONE
[2022-03-28 13:25] LABS: HEMOGLOBIN A1c 5.6 % (4.0-6.0)
[2022-03-28 13:43] LABS: ALBUMIN 3.7 G/DL (3.2-5.2); ALKALINE PHOSPHATASE 75 U/L (46-116); ALT/SGPT 25 U/L (7.0-40); AST/SGOT 17 U/L (<34); BILIRUBIN,TOTAL 0.4 MG/DL (0.3-1.2); BLOOD UREA NITROGEN 18 MG/DL (9-23); CALCIUM LEVEL 8.7 MG/DL (8.3-10.6); CARBON DIOXIDE LEVEL 30 MMOL/L (20-31); CHLORIDE LEVEL 100 MMOL/L (98-107); CHOLESTEROL LEVEL 243 MG/DL (<200); CHOLESTEROL RISK RATIO 4.59 (<5); CREATININE FOR GFR 1.02 MG/DL (0.70-1.30); GLOMERULAR FILTRATION RATE > 60.0 (>49); GLUCOSE, FASTING 98 MG/DL (74-106); HDL CHOLESTEROL 52.9 MG/DL (>40); LDL CHOLESTEROL 129.5 MG/DL (<100); NON-HDL-C 190 MG/DL; POTASSIUM SERUM 4.4 MMOL/L (3.5-5.1); SODIUM LEVEL 138 MMOL/L (136-145); TOTAL PROTEIN 7.6 G/DL (5.7-8.2); TRIGLYCERIDES LEVEL 303 MG/DL (<150)
== END ==
LOC: M WUC 09:51
PROVIDERS: ATTEND Nurse Practitioner Adult Health
DX: Z00.00 Encounter for general adult medical examination without abnormal findings (principal); Z12.5 Encounter for screening for malignant neoplasm of prostate; E78.2 Mixed hyperlipidemia; Z13.1 Encounter for screening for diabetes mellitus

== ENCOUNTER → 2023-01-16 | Outpatient (REF) | payer OTHER | LOC: M SFHCDERM 17:42 | PROVIDERS: ATTEND Physician Assistant | DX: L72.0 Epidermal cyst (principal) ==

== ENCOUNTER → 2023-01-23 | Outpatient (CLI) | payer OTHER | LOC: M WUC 14:40 | PROVIDERS: ATTEND Physician Assistant | DX: R05.9 Cough, unspecified (principal); J06.9 Acute upper respiratory infection, unspecified ==

== ENCOUNTER → 2023-05-01 | Outpatient (CLI) | payer OTHER ==
[2023-05-01 10:38] LABS: HEMOGLOBIN A1c 5.9 % (4.0-6.0)
[2023-05-01 10:50] LABS: ALBUMIN 3.6 G/DL (3.2-5.2); ALKALINE PHOSPHATASE 78 U/L (46-116); ALT/SGPT 31 U/L (7.0-40); AST/SGOT 15 U/L (<34); BILIRUBIN,TOTAL 0.6 MG/DL (0.3-1.2); BLOOD UREA NITROGEN 16 MG/DL (9-23); CALCIUM LEVEL 8.7 MG/DL (8.3-10.6); CARBON DIOXIDE LEVEL 27 MMOL/L (20-31); CHLORIDE LEVEL 102 MMOL/L (98-107); CHOLESTEROL LEVEL 232 MG/DL (<200); CHOLESTEROL RISK RATIO 4.33 (<5); CREATININE FOR GFR 1.03 MG/DL (0.70-1.30); GLOMERULAR FILTRATION RATE > 60.0 (>49); GLUCOSE, FASTING 113 MG/DL (74-106); HDL CHOLESTEROL 53.5 MG/DL (>40); LDL CHOLESTEROL 142.9 MG/DL (<100); NON-HDL-C 178.5 MG/DL; POTASSIUM SERUM 3.8 MMOL/L (3.5-5.1); PSA SCREENING 0.46 NG/ML (< 4.00); SODIUM LEVEL 137 MMOL/L (136-145); TRIGLYCERIDES LEVEL 178 MG/DL (<150)
[2023-05-01 10:52] LABS: THYROID STIMULATING HORMONE 2.473 uIU/ML (0.55-4.78); TOTAL 25(OH) VITAMIN D 23.2 NG/ML (20.0-100.0)
[2023-05-01 10:53] LABS: FREE T4 0.93 NG/DL (0.89-1.76)
== END ==
LOC: M WUC 08:09
PROVIDERS: ATTEND Nurse Practitioner Adult Health
DX: Z00.00 Encounter for general adult medical examination without abnormal findings (principal); E78.2 Mixed hyperlipidemia; Z13.1 Encounter for screening for diabetes mellitus; Z12.5 Encounter for screening for malignant neoplasm of prostate

== ENCOUNTER → 2023-10-15 | Outpatient (CLI) | payer OTHER ==
[~2023-10-15] MED LIST changes: +DOXY-323 PO; -DOXY-443 PO
[2023-10-15 13:02] LABS: HEMOGLOBIN A1c 5.9 % (4.0-6.0)
[2023-10-15 13:19] LABS: ALBUMIN 3.7 G/DL (3.2-5.2); ALKALINE PHOSPHATASE 84 U/L (46-116); ALT/SGPT 33 U/L (7.0-40); AST/SGOT 15 U/L (<34); BILIRUBIN,TOTAL 0.5 MG/DL (0.3-1.2); BLOOD UREA NITROGEN 15 MG/DL (9-23); CALCIUM LEVEL 8.7 MG/DL (8.3-10.6); CARBON DIOXIDE LEVEL 28 MMOL/L (20-31); CHLORIDE LEVEL 106 MMOL/L (98-107); CHOLESTEROL LEVEL 240 MG/DL (<200); CHOLESTEROL RISK RATIO 5.46 (<5); CREATININE FOR GFR 0.97 MG/DL (0.70-1.30); GLOMERULAR FILTRATION RATE > 60.0 (>49); GLUCOSE, FASTING 103 MG/DL (74-106); HDL CHOLESTEROL 43.9 MG/DL (>40); LDL CHOLESTEROL 147.3 MG/DL (<100); NON-HDL-C 196.1 MG/DL; POTASSIUM SERUM 4.2 MMOL/L (3.5-5.1); SODIUM LEVEL 139 MMOL/L (136-145); TRIGLYCERIDES LEVEL 244 MG/DL (<150)
[2023-10-15 13:23] LABS: TOTAL 25(OH) VITAMIN D 28.7 NG/ML (20.0-100.0)
== END ==
LOC: M WUC 09:16
PROVIDERS: ATTEND Nurse Practitioner Adult Health
DX: Z13.21 Encounter for screening for nutritional disorder (principal); E78.2 Mixed hyperlipidemia

== ENCOUNTER → 2024-04-03 | Outpatient (CLI) | payer OTHER ==
[~2024-04-03] MED LIST changes: -DOXY-323 PO; +DOXY-441 PO
[2024-04-03 11:29] LABS: ALBUMIN 3.5 G/DL (3.2-5.2); ALKALINE PHOSPHATASE 85 U/L (40-129); ALT/SGPT 35 U/L (7.0-40); AST/SGOT 16 U/L (<34); BILIRUBIN,TOTAL 0.4 MG/DL (0.3-1.2); BLOOD UREA NITROGEN 20 MG/DL (9-23); CALCIUM LEVEL 8.7 MG/DL (8.3-10.6); CARBON DIOXIDE LEVEL 30 MMOL/L (20-31); CHLORIDE LEVEL 106 MMOL/L (98-107); CHOLESTEROL LEVEL 211 MG/DL (<200); CHOLESTEROL RISK RATIO 4.27 (<5); CPK CREATINE PHOSPHOKINASE 35 U/L (46-171); CREATININE FOR GFR 1.05 MG/DL (0.70-1.30); GLOMERULAR FILTRATION RATE > 60.0 (>49); GLUCOSE, FASTING 112 MG/DL (74-106); HDL CHOLESTEROL 49.4 MG/DL (>40); LDL CHOLESTEROL 138.4 MG/DL (<100); NON-HDL-C 161.6 MG/DL; POTASSIUM SERUM 4.3 MMOL/L (3.5-5.1); SODIUM LEVEL 141 MMOL/L (136-145); TOTAL PROTEIN 7.2 G/DL (5.7-8.2); TRIGLYCERIDES LEVEL 116 MG/DL (<150)
== END ==
LOC: M WUC 08:02
PROVIDERS: ATTEND Nurse Practitioner Adult Health
DX: E78.2 Mixed hyperlipidemia (principal)